=== PATIENT | male | born 1980 | race Caucasian/White ===

== ENCOUNTER 2019-04-06 23:12 | Emergency (ER) | payer OTHER ==
[2019-04-06 23:20] VITALS: BP 127/70
--- NOTE | 2019-04-06 23:20 | ED.ADGEN ---
Past History Past Surgical History Pilonidal Cyst Adult General Chief Complaint Chief Complaint ".. I had a big cyst removed off my tail bone on the (2019) by Dr. Jensen..... He took out a couple sutures.. but now I noticed the top has a gap... I just wanted some one to look... 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 Pt. site appears to be healing well with some mild dehiscence at the top of suture line. No active bleeding. No drainage. No significant discomfort. Patient recently follow with Dr. Melgar who did remove some sutures at site. Does have a follow-up appointment with Dr. Melgar. Review of Systems Review of Systems Constitutional: Denies fever or chills [] Eyes: Denies change in visual acuity, redness, or eye pain [] HENT: Denies nasal congestion or sore throat [] Respiratory: Denies cough or shortness of breath [] Cardiovascular: No additional information not addressed in HPI [] GI: Denies abdominal pain, nausea, vomiting, bloody stools or diarrhea [] : Denies dysuria or hematuria [] Musculoskeletal: Denies back pain or joint pain [] Integument: Denies rash or skin lesions [. The]patient has complaints of dehiscence at time of suture line. Neurologic: Denies headache, focal weakness or sensory changes [] Endocrine: Denies polyuria or polydipsia [] All other systems were reviewed and found to be within normal limits, except as documented in this note. Family History Family History Noncontributory Current Medications Current Medications See nursing for home meds and allergies Allergies Allergies Allergies Coded Allergies Type Severity Reaction Last Updated Verified Unable to Assess 04/07/19 No Physical Exam Physical Exam Constitutional: , no acute distress, non-toxic appearance. [] HENT: Normocephalic, atraumatic, bilateral external ears normal, oropharynx moist, no oral exudates, nose normal. [] Eyes: PERRLA, EOMI, conjunctiva normal, no discharge. [] Neck: Normal range of motion, no tenderness, supple, no stridor. [] Cardiovascular:Heart rate regular rhythm, no murmur [] Lungs & Thorax: Bilateral breath sounds clear to auscultation [] Abdomen: Bowel sounds normal, soft, no tenderness, no masses, no pulsatile masses. [] Skin: Warm, dry, no erythema, no rash. [] Mild dehiscence at top of suture line- at area of pilonidal cyst removal Back: No tenderness, no CVA tenderness. [] Extremities: No tenderness, no cyanosis, no clubbing, ROM intact, no edema. [] Neurologic: Alert and oriented X 3, normal motor function, normal sensory function, no focal deficits noted. [] Psychologic: Affect normal, judgement normal, mood normal. [] Current Patient Data Vital Signs Vital Signs Date Time Temp Pulse Resp B/P (MAP) Pulse Ox O2 Delivery O2 Flow Rate FiO2 04/06/19 23:20 97.8 83 16 98 Room Air EKG EKG [] Radiology/Procedures Radiology/Procedures [] Course & Med Decision Making Course & Med Decision Making Pertinent Labs and Imaging studies reviewed. (See chart for details) Rinse area of warm salt water or warm shower water 4 times a day and as needed. Follow-up with Dr. Melgar. Return if any concerns. Dry dressing. [] Final Impression Final Impression 1. Status post pilonidal cyst[]- removal 03/30 2. Mild Dehiscence Suture line Dragon Disclaimer Dragon Disclaimer This electronic medical record was generated, in whole or in part, using a voice recognition dictation system. Dragon Disclaimer This chart was dictated in whole or in part using Voice Recognition software in a busy, high-work load, and often noisy Emergency Department environment. It may contain unintended and wholly unrecognized errors or omissions. BRAD VILLARREAL MD Apr 06, 2019 23:20
[2019-04-06] MEDS ORDERED: HYDR-1179 PO (23:49)
== END 2019-04-07 00:01 | disposition home or self-care (01) ==
LOC: ER 23:12
DX: T81.31XA Disruption of external operation (surgical) wound, not elsewhere classified, initial encounter (principal)
CPT/HCPCS: 99283